=== PATIENT | female | born 1995 | race Caucasian/White ===

== ENCOUNTER 2021-08-20 16:28 | Emergency (ER) | payer BC ==
[~2021-08-20] VITALS: Ht 157.5 cm; Wt 47.0 kg
[2021-08-20] MEDS ORDERED: IV NORMAL SALINE 1,000ML 1,000 ML IV ONE (17:15)
--- NOTE | 2021-08-20 17:22 | PHYS DOC ---
Past History Past Surgical History: (RIOS FERRARI APRN) Alcohol Use: Rarely (RIOS FERRARI APRN) General Adult EDM: Chief Complaint: VAGINAL BLEEDING HPI: HPI: Patient is a 27-year-old female who presents with vaginal bleeding during . Patient states she was on her way home from work when she had a gush of blood. Patient is G3, P2. Patient states that she is 5 weeks , which is been confirmed with an at home test. Patient does have some abdominal cramping. Denies taking anything for pain. Denies clots. Denies medical history. (RIOS FERRARI APRN) Review of Systems: Review of Systems: Constitutional: Denies fever or chills Eyes: Denies change in visual acuity HENT: Denies nasal congestion or sore throat Respiratory: Denies cough or shortness of breath Cardiovascular: Denies chest pain or edema GI: Reports abdominal cramping. Denies, nausea, vomiting, bloody stools or diarrhea /vaginal: Denies dysuria. Reports vaginal bleeding. Denies clots Musculoskeletal: Denies back pain or joint pain Integument: Denies rash Neurologic: Denies headache, focal weakness or sensory changes Endocrine: Denies polyuria or polydipsia Lymphatic: Denies swollen glands Psychiatric: Denies depression or anxiety (RIOS FERRARI APRN) Current Medications: Current Meds: Current Medications Medications (Trade) Dose Ordered Sig/Marcial Start Time Stop Time Status Last Admin Dose Admin Sodium Chloride 1,000 ml @ 1,000 mls/hr 1X ONCE 08/20/21 17:15 08/20/21 18:14 UNV (RIOS FERRARI APRN) Allergies: Allergies: Allergies Coded Allergies Type Severity Reaction Last Updated Verified No Known Drug Allergies 08/20/21 No (RIOS FERRARI APRN) Physical Exam: PE: Constitutional: Well developed, well nourished, no acute distress, non-toxic appearance. [] HENT: Normocephalic, atraumatic, bilateral external ears normal, oropharynx moist, no oral exudates, nose normal. [] Eyes: PERRLA, EOMI, conjunctiva normal, no discharge. [] Neck: Normal range of motion, no tenderness, supple, no stridor. [] Cardiovascular:Heart rate regular rhythm, no murmur [] Lungs & Thorax: Bilateral breath sounds clear to auscultation [] Abdomen: Bowel sounds normal, soft, no tenderness, no masses, no pulsatile kole s. [] Skin: Warm, dry, no erythema, no rash. [] Back: No tenderness, no CVA tenderness. [] Extremities: No tenderness, no cyanosis, no clubbing, ROM intact, no edema. [] Neurologic: Alert and oriented X 3, normal motor function, normal sensory function, no focal deficits noted. [] Psychologic: Affect normal, judgement normal, mood normal. [] (RIOS FERRARI APRN) Current Patient Data: Vital Signs: Vital Signs Date Time Temp Pulse Resp B/P (MAP) Pulse Ox O2 Delivery O2 Flow Rate FiO2 08/20/21 16:39 98.1 78 12 130/82 (98) 97 Room Air (RIOS FERRARI APRN) EKG: EKG: [] (RIOS FERRARI APRN) Radiology/Procedures: Radiology/Procedures: []US OB <14 WKS +TV History: Reason: vaginal bleeding with / Spl. Instructions: / History: Comparison: None. Technique: Grayscale and color Doppler imaging of the pelvis was performed using transabdominal and transvaginal technique. Findings: The uterus measures 10.7 x 6.1 x 4.4 cm. Single intrauterine gestational sac with irregular appearance measures 0.8 cm. Estimated gestational age 5 weeks 4 days. Yolk sac and pole are not identified. Large subchorionic hematoma measures 3.2 x 2.7 x 1.1 cm. Right ovary measures 2.9 x 3.2 x 2.5 cm. Left ovary measures 1.9 x 2.0 x 1.2 cm. Normal Doppler flow to the ovaries bilaterally. No adnexal masses are seen. Small pelvic free fluid. IMPRESSION: 1. Single intrauterine gestational sac with gestational age 5 weeks 4 days. pole is not identified, may relate to early . Recommend short- term ultrasound follow-up and serial beta-hCG testing. 2. Large subchorionic hematoma. 3. Small pelvic free fluid. Electronically signed by: Lonnie Peña DO (08/20/2021 6:09 PM) [facility] (RIOS FERRARI APRN) Heart Score: C/O Chest Pain: No Risk Factors: Risk Factors: DM, Current or recent (<one month) smoker, HTN, HLP, family history of CAD, obesity. Risk Scores: Score 0 - 3: 2.5% MACE over next 6 weeks - Discharge Home Score 4 - 6: 20.3% MACE over next 6 weeks - Admit for Clinical Observation Score 7 - 10: 72.7% MACE over next 6 weeks - Early Invasive Strategies (RIOS FERRARI APRN) Course & Med Decision Making: Course & Med Decision Making Pertinent Labs and Imaging studies reviewed. (See chart for details) [] 18-year-old female presents with vaginal bleeding during . Patient also reports abdominal cramping. G3, P2. Patient states she has only confirmed with home test. Transvaginal ultrasound shows Single intrauterine gestational sac with irregular appearance measures 0.8 cm. Estimated gestational age 5 weeks 4 days. Yolk sac and pole are not identified. This is possibly due to early u ltrasound. Advised patient she needs to follow-up with her [facility] SALES SPECIALIST in 48 h or return to emergency room to have repeat blood work completed. Patient given strict return precautions. Patient is hemodynamically stable upon disposition. hCG, 7765 (RIOS FERRARI APRN) Dragon Disclaimer: Dragon Disclaimer: This electronic medical record was generated, in whole or in part, using a voice recognition dictation system. (RIOS FERRARI APRN) Attending Co-Sign The patient was seen and interviewed as well as examined at the bedside. The chart was reviewed. The case was discussed. Agree with the plan of care. (PRINCE CROW DO) Departure Departure: Impression: Primary Impression: Threatened in early Disposition: HOME / SELF CARE / HOMELESS Condition: STABLE Referrals: PCP,NO (PCP) Patient Instructions: Threatened Miscarriage, [id number] Additional Instructions: Please return in 48 h to the emergency room or to your [facility] to have repeat hCG quant levels completed. Return emergency room if you have worsening symptoms or concerns. EMERGENCY DEPARTMENT GENERAL DISCHARGE INSTRUCTIONS Thank you for coming to [facility] (ED) today and trusting us with you care. We trust that you had a positivie experience in our Emergency Department. If you wish to speak to the department management, you may call the director at [phone]. YOUR FOLLOW UP INSTRUCTIONS ARE FOLLOWS: 1. Do you have a private Doctor? If you do not have a private doctor, please ask for a resource list of physicians or clinics that may be able to assist you with follow up care. 2. The Emergency Physician has interpreted your x-rays. The X-Ray specialist will also review them. If there is a change in the findings, you will be notified in 48 hours when at all possible. 3. A lab test or culture has been done, your results will be reviewed and you will be notified if you need a change in treatment. ADDITIONAL INSTRUCTIONS AND INFORMATION: 1. Your care today has been supervised by a physician who is specially trained in emergency care. Many problems require more than one evaluation for a complete diagnosis and treatment. We recommend that you schedule your follow up appointment as recommended to ensure complete treatment of you illness or injury. If you are unable to obtain follow up care and continue to have a problem, or if your condition worsens, we recommend that you return to the ED. 2. We are not able to safely determine your condition over the phone nor are we able to give sound medical advice over the phone. For these safety reasons, if you call for medical advice we will ask you to come to the ED for further evaluation. 3. If you have any questions regarding these discharge instructions please call the ED at [phone]. SAFETY INFORMATION: In the interest of safety, wellness, and injury prevention; we encourage you to wear your sealbelt, if you smoke; quite smoking, and we encourage family to use a protective helmet for bicycling and other sporting events that present an increased risk for head injury. IF YOUR SYMPTOMS WORSEN OR NEW SYMPTOMS DEVELOP, OR YOU HAVE CONCERNS ABOUT YOUR CONDITION; OR IF YOUR CONDITION WORSENS WHILE YOU ARE WAITING FOR YOUR FOLLOW UP APPOINTMENT; EITHER CONTACT YOUR PRIMARY CARE DOCTOR, THE PHYSICIAN WHOSE NAME AND NUMBER YOU WERE GIVEN, OR RETURN TO THE ED IMMEDIATELY. RIOS FERRARI APRN Aug 20, 2021 17:22 PRINCE CROW DO Aug 21, 2021 06:20
[2021-08-20 17:50] LABS: BASO % 1 % (0-3); EOS # 0.3 x10^3/uL (0.0-0.7); EOS % 4 % (0-3); HEMATOCRIT 35.6 % (36.0-47.0); HEMOGLOBIN 11.6 g/dL (12.0-15.5); LYMPH # 2.2 x10^3/uL (1.0-4.8); LYMPH % 27 % (24-48); MEAN CORPUSCULAR HEMOGLOBIN 26 pg (25-35); MEAN CORPUSCULAR HGB CONC 33 g/dL (31-37); MEAN CORPUSCULAR VOLUME 78 fL (79-100); MONO # 0.6 x10^3/uL (0.0-1.1); MONO % 7 % (0-9); NEUT % 62 % (31-73); PLATELET COUNT 220 x10^3/uL (140-400); RED BLOOD COUNT 4.55 x10^6/uL (3.50-5.40); RED CELL DISTRIBUTION WIDTH 15.8 % (11.5-14.5); WHITE BLOOD COUNT 8.1 x10^3/uL (4.0-11.0)
[2021-08-20 17:56] LABS: CALCIUM 8.9 mg/dL (8.5-10.1); CREATININE 0.6 mg/dL (0.6-1.0); POTASSIUM 3.1 mmol/L (3.5-5.1)
[2021-08-20 18:02] LABS: ALBUMIN 3.8 g/dL (3.4-5.0); ALBUMIN/GLOBULIN RATIO 1.2 (1.0-1.7); TOTAL BILIRUBIN 0.2 mg/dL (0.2-1.0); TOTAL PROTEIN 7.1 g/dL (6.4-8.2)
[2021-08-20 18:05] LABS: CLARITY,URINE TURBID; COLOR,URINE YELLOW
[2021-08-20 18:06] LABS: AMORPHOUS SEDIMENT,UR PRESENT /HPF; BACTERIA,URINE FEW /HPF (0-FEW); BILIRUBIN,URINE NEG (NEG); GLUCOSE,URINE NEG (NEG); NITRITE,URINE NEG (NEG); SQUAMOUS EPITHELIAL CELL,UR OCC /LPF; UROBILINOGEN,URINE 0.2 mg/dL (0.2 mg/dL)
--- NOTE | 2021-08-20 18:11 | RAD ---
US OB <14 WKS +TV History: Reason: vaginal bleeding with / Spl. Instructions: / History: Comparison: None. Technique: Grayscale and color Doppler imaging of the pelvis was performed using transabdominal and t ransvaginal technique. Findings: The uterus measures 10.7 x 6.1 x 4.4 cm. Single intrauterine gestational sac with irregular appearance measures 0.8 cm. Estimated gestational age 5 weeks 4 days. Yolk sac and pole are not identified. Large subchorionic hematoma measures 3.2 x 2.7 x 1.1 cm. Right ovary measures 2.9 x 3.2 x 2.5 cm. Left ovary measures 1.9 x 2.0 x 1.2 cm. Normal Doppler flow to the ovaries bilaterally. No adnexal masses are seen. Small pelvic free fluid. IMPRESSION: 1. Single intrauterine gestational sac with gestational age 5 weeks 4 days. pole is not identi fied, may relate to early . Recommend short-term ultrasound follow-up and serial beta-hCG te sting. 2. Large subchorionic hematoma. 3. Small pelvic free fluid. Electronically signed by: Lonnie Peña DO (08/20/2021 6:09 PM) [facility]
[2021-08-20 19:28] VITALS: BP 107/56
== END 2021-08-20 19:29 | disposition home or self-care (01) ==
LOC: EDBD 16:28 → ER 16:28
DX: O20.0 Threatened abortion (principal); Z3A.01 Less than 8 weeks gestation of pregnancy
CPT/HCPCS: 36415; 76801; 76817; 80053; 81001; 81025; 84702; 85025; 86850; 86900; 86901; 99284-25